=== PATIENT | female | born 1965 | race Caucasian/White ===

== ENCOUNTER → 2017-11-04 08:33 | Outpatient (CLI) | payer MEDICARE, BC ==
[~2017-11-04] VITALS: Ht 165.1 cm; Wt 127.0 kg
[2017-11-04 13:14] VITALS: Ht 165.1 cm; Wt 127.0 kg
== END | disposition home or self-care (01) ==
LOC: D.FANS 08:33
DX: E66.01 Morbid (severe) obesity due to excess calories (principal)

== ENCOUNTER → 2018-02-25 11:11 | Outpatient (CLI) | payer MEDICARE ==
[2017-11-04 13:14] VITALS: BMI 46.5
[~2018-02-25 11:11] MED LIST: ACTOS30 MG PO; AMBIEN5 MG PO; CYMBALTA30 MG; HYZAAR 100-25 T1 TAB PO; KLONOPIN0.5 MG PO; LIPITOR10 MG PO; LITHIUM CARBON300 MG PO; NEURONTIN 300300 MG PO; OMEPRAZOLE20 M1 PO; POTASSIUM CHLORIDE C PO; REGLAN5 MG PO; ULTRAM50 MG PO
[2018-02-25 12:25] LABS: BASOPHILS 0.3 % (0-2); HEMATOCRIT 42.6 % (36.0-48.0); HEMOGLOBIN 14.2 g/dL (12-16); IMMATURE GRANULOCYTES 0.1 % (0-5); LYMPHOCYTES 18.7 % (15-50); MCHC 33.3 g/dL (31.0-37.0); MCV 83.9 fL (80.0-100.0); MEAN PLATELET VOLUME 9.1 fL (7.4-10.4); MONOCYTES 5.6 % (2-11); NEUTROPHILS 72.3 % (40-80); PLATELET COUNT 243 10x3/uL (130-400); RBC 5.08 10x6/uL (4.00-5.40); RDW 13.5 % (11.5-14.5); WBC 8.6 10x3/uL (4.8-10.8)
[2018-02-25 12:37] LABS: APTT 25.6 SECONDS (22.8-39.4); INR 1.03 (0.85-1.17); PROTIME 13.1 SECONDS (11.6-15.0)
[2018-02-25 12:39] LABS: HELICOBACTER PYLORI IGG NEGATIVE (NEGATIVE)
[2018-02-25 12:57] LABS: ALBUMIN 3.4 g/dL (3.4-5.0); ANION GAP 10.4 mmol/L (8-16); BILIRUBIN - DIRECT 0.1 mg/dL (0.00-0.30); BILIRUBIN - INDIRECT 0.29 mg/dL (0.00-1.00); BILIRUBIN - TOTAL 0.39 mg/dL (0.2-1.3); CALCIUM 9.2 mg/dL (8.5-10.1); CARBON DIOXIDE 33.6 mmol/L (21.0-32.0); CHOL - HDL RATIO 3.7 ratio (2.3-4.1); CREATININE - SERUM 1.1 mg/dL (0.6-1.3); LDL-HDL RATIO 2.2 ratio (1.5-3.5); PROTEIN - SERUM 7.5 g/dL (6.4-8.2); T4 THYROXINE 12.1 ug/dL (4.7-13.3); THYROID STIMULATING HORMONE 2.29 uIU/mL (0.36-3.74)
[2018-02-26 09:17] LABS: FOLATE (FOLIC ACID) - SERUM 9.4 ng/mL (>3.0)
[2018-03-24 07:40] VITALS: BMI 45.0
== END | disposition home or self-care (01) ==
LOC: D.LAB 11:11
PROVIDERS: Surgery
DX: K21.9 Gastro-esophageal reflux disease without esophagitis (principal); E78.5 Hyperlipidemia, unspecified; I10 Essential (primary) hypertension; E11.9 Type 2 diabetes mellitus without complications

== ENCOUNTER 2018-03-02 07:57 | Outpatient (CLI) | payer MEDICARE ==
[2017-11-04 13:14] VITALS: BMI 46.5
[2018-03-24 07:40] VITALS: BMI 45.0
== END 2018-03-02 10:50 ==
LOC: D.OPS 07:57 → D.RAD 09:30 → D.OPS 10:50
DX: E66.01 Morbid (severe) obesity due to excess calories (principal)

== ENCOUNTER 2018-03-24 05:51 | Day surgery (SDC) | payer MEDICARE ==
[~2018-03-24] VITALS: Ht 165.1 cm; Wt 3.0 kg
[2018-03-24 07:12] LABS: BASOPHILS 0.4 % (0-2); EOSINOPHILS 3.6 % (0-7); HEMATOCRIT 41.8 % (36.0-48.0); HEMOGLOBIN 13.8 g/dL (12-16); IMMATURE GRANULOCYTES 0.4 % (0-5); LYMPHOCYTES 20.9 % (15-50); MCH 27.4 pg (26.0-34.0); MCV 82.9 fL (80.0-100.0); MEAN PLATELET VOLUME 9.2 fL (7.4-10.4); NEUTROPHILS 67.7 % (40-80); PLATELET COUNT 216 10x3/uL (130-400); RBC 5.04 10x6/uL (4.00-5.40); RDW 13.6 % (11.5-14.5); WBC 7.2 10x3/uL (4.8-10.8)
[2018-03-24] MEDS ORDERED: POTASSIUM CHLORIDE C PO (07:22)
[2018-03-24] MEDS ORDERED: LITHIUM CARBON300 MG PO (07:23)
[2018-03-24] MEDS ORDERED: OMEPRAZOLE20 M1 PO (07:24)
[2018-03-24] MEDS ORDERED: LIPITOR10 MG PO (07:24)
[2018-03-24] MEDS ORDERED: KLONOPIN0.5 MG PO (07:24)
[2018-03-24] MEDS ORDERED: ACTOS30 MG PO (07:25)
[2018-03-24] MEDS ORDERED: CYMBALTA30 MG (07:25)
[2018-03-24] MEDS ORDERED: REGLAN5 MG PO (07:26)
[2018-03-24] MEDS ORDERED: NEURONTIN 300300 MG PO (07:26)
[2018-03-24] MEDS ORDERED: AMBIEN5 MG PO (07:27)
[2018-03-24] MEDS ORDERED: ULTRAM50 MG PO (07:28)
[2018-03-24] MEDS ORDERED: HYZAAR 100-25 T1 TAB PO (07:28)
[2018-03-24 07:40] VITALS: BP 132/74; Ht 165.1 cm; Wt 3.0 kg
[2018-03-24 07:55] LABS: ANION GAP 13.6 mmol/L (8-16); CALCIUM 9.5 mg/dL (8.5-10.1); CARBON DIOXIDE 27.4 mmol/L (21.0-32.0)
== END 2018-03-24 10:35 | disposition home or self-care (01) ==
LOC: D.OPS 05:51
PROVIDERS: Anesthesiology
DX: K21.9 Gastro-esophageal reflux disease without esophagitis (principal); E66.01 Morbid (severe) obesity due to excess calories; K31.84 Gastroparesis; K44.9 Diaphragmatic hernia without obstruction or gangrene; Z01.812 Encounter for preprocedural laboratory examination

== ENCOUNTER 2018-05-17 06:00 | Inpatient (IN) | payer MEDICARE ==
[2018-05-14 09:05] LABS: HEMOGLOBIN 14.9 g/dL (12-16); MCH 27.5 pg (26.0-34.0); MCHC 33.9 g/dL (31.0-37.0); MCV 81.3 fL (80.0-100.0); RBC 5.41 10x6/uL (4.00-5.40); WBC 8.5 10x3/uL (4.8-10.8)
[2018-05-14 09:13] LABS: ANION GAP 11.8 mmol/L (8-16); CALCIUM 9.1 mg/dL (8.5-10.1); CARBON DIOXIDE 29.4 mmol/L (21.0-32.0); CREATININE - SERUM 1.1 mg/dL (0.6-1.3); POTASSIUM - SERUM 3.2 mmol/L (3.5-5.1)
[~2018-05-17] VITALS: Ht 165.1 cm; Wt 124.5 kg
[2018-05-17 07:04] VITALS: BP 105/65; BMI 45.8
[2018-05-17 20:11] VITALS: BP 120/76
[2018-05-17 23:58] VITALS: BP 134/74
[2018-05-18 00:44] VITALS: BP 134/74; Ht 165.1 cm; Wt 124.5 kg
[2018-05-18 04:48] VITALS: BP 124/74
[2018-05-18 05:50] LABS: BASOPHILS 0.2 % (0-2); EOSINOPHILS 0.2 % (0-7); HEMATOCRIT 38.4 % (36.0-48.0); HEMOGLOBIN 12.2 g/dL (12-16); IMMATURE GRANULOCYTES 0.2 % (0-5); LYMPHOCYTES 10.8 % (15-50); MCH 26.8 pg (26.0-34.0); MCHC 31.8 g/dL (31.0-37.0); MCV 84.2 fL (80.0-100.0); MEAN PLATELET VOLUME 8.9 fL (7.4-10.4); MONOCYTES 6.5 % (2-11); NEUTROPHILS 82.1 % (40-80); PLATELET COUNT 189 10x3/uL (130-400); RBC 4.56 10x6/uL (4.00-5.40); RDW 14.5 % (11.5-14.5); WBC 12.7 10x3/uL (4.8-10.8)
[2018-05-18 06:22] LABS: ALBUMIN 2.8 g/dL (3.4-5.0); ANION GAP 11.6 mmol/L (8-16); BILIRUBIN - TOTAL 0.5 mg/dL (0.2-1.3); CALCIUM 7.8 mg/dL (8.5-10.1); CARBON DIOXIDE 27.5 mmol/L (21.0-32.0); CREATININE - SERUM 0.9 mg/dL (0.6-1.3); PROTEIN - SERUM 5.7 g/dL (6.4-8.2)
[2018-05-18 06:23] LABS: POTASSIUM - SERUM 4.1 mmol/L (3.5-5.1)
[2018-05-18 07:30] VITALS: BP 112/59
[2018-05-18 12:25] VITALS: BP 124/65
[2018-05-18] MEDS ORDERED: HYDROCODON-ACE1 EAC7 PO (12:50)
== END 2018-05-18 14:22 | disposition home or self-care (01) | DRG 621 ==
LOC: D.SDCHOLD 06:00 → D.MS 14:38 → D.SDCHOLD 15:34 → D.MS 15:34
PROVIDERS: Anesthesiology; Surgery
PROC: 0BQT4ZZ Repair Diaphragm, Percutaneous Endoscopic Approach (ICD-10-PCS; 2018-05-17)
PROC: 0DB64Z3 Excision of Stomach, Percutaneous Endoscopic Approach, Vertical (ICD-10-PCS; principal; 2018-05-17 08:00)
DX: E66.01 Morbid (severe) obesity due to excess calories (principal); Z68.42 Body mass index [BMI] 45.0-49.9, adult; E11.9 Type 2 diabetes mellitus without complications; K21.9 Gastro-esophageal reflux disease without esophagitis; K44.9 Diaphragmatic hernia without obstruction or gangrene

== ENCOUNTER → 2018-11-04 10:23 | Outpatient (CLI) | payer MEDICARE ==
[2018-05-18 00:44] VITALS: BMI 45.6
[~2018-11-04 10:23] MED LIST changes: +HYDROCODON-ACE1 EAC7 PO
[2018-11-04 11:17] LABS: BASOPHILS 0.7 % (0-2); EOSINOPHILS 3.8 % (0-7); HEMATOCRIT 43.2 % (36.0-48.0); HEMOGLOBIN 14.5 g/dL (12-16); LYMPHOCYTES 27.1 % (15-50); MCH 27.2 pg (26.0-34.0); MCHC 33.6 g/dL (31.0-37.0); MCV 80.9 fL (80.0-100.0); MEAN PLATELET VOLUME 9.3 fL (7.4-10.4); NEUTROPHILS 62.4 % (40-80); PLATELET COUNT 208 10x3/uL (130-400); RBC 5.34 10x6/uL (4.00-5.40); RDW 14.1 % (11.5-14.5); WBC 6.8 10x3/uL (4.8-10.8)
[2018-11-04 11:20] LABS: ALBUMIN 3.4 g/dL (3.4-5.0); ANION GAP 13.6 mmol/L (8-16); BILIRUBIN - TOTAL 0.5 mg/dL (0.2-1.3); CARBON DIOXIDE 28.2 mmol/L (21.0-32.0); CHOL - HDL RATIO 3.7 ratio (2.3-4.1); CREATININE - SERUM 0.9 mg/dL (0.6-1.3); LDL-HDL RATIO 2.2 ratio (1.5-3.5); POTASSIUM - SERUM 3.8 mmol/L (3.5-5.1); PROTEIN - SERUM 7.2 g/dL (6.4-8.2)
== END | disposition home or self-care (01) ==
LOC: D.LAB 10:23
PROVIDERS: Surgery
DX: Z01.812 Encounter for preprocedural laboratory examination (principal); K21.9 Gastro-esophageal reflux disease without esophagitis; I10 Essential (primary) hypertension; E11.9 Type 2 diabetes mellitus without complications; E87.5 Hyperkalemia

== ENCOUNTER → 2019-02-03 10:49 | Outpatient (CLI) | payer MEDICARE ==
[2018-05-18 00:44] VITALS: BMI 45.6
[2019-02-03 11:37] LABS: BASOPHILS 0.5 % (0-2); EOSINOPHILS 3.9 % (0-7); HEMATOCRIT 42.8 % (36.0-48.0); HEMOGLOBIN 14.3 g/dL (12-16); IMMATURE GRANULOCYTES 0.1 % (0-5); LYMPHOCYTES 23.3 % (15-50); MCH 27.3 pg (26.0-34.0); MCHC 33.4 g/dL (31.0-37.0); MCV 81.8 fL (80.0-100.0); MEAN PLATELET VOLUME 9.2 fL (7.4-10.4); MONOCYTES 4.8 % (2-11); NEUTROPHILS 67.4 % (40-80); PLATELET COUNT 220 10x3/uL (130-400); RBC 5.23 10x6/uL (4.00-5.40); RDW 14.5 % (11.5-14.5); WBC 7.9 10x3/uL (4.8-10.8)
[2019-02-03 11:59] LABS: CREATININE - SERUM 0.9 mg/dL (0.6-1.3)
== END | disposition home or self-care (01) ==
LOC: D.LAB 10:49
PROVIDERS: ATTEND Surgery
DX: E11.9 Type 2 diabetes mellitus without complications (principal); I10 Essential (primary) hypertension; E66.01 Morbid (severe) obesity due to excess calories